=== PATIENT | female | born 1935 ===

== ENCOUNTER 2018-01-28 09:41 | Emergency (ER) | payer OTHER ==
[~2018-01-28] VITALS: Ht 165.1 cm; Wt 60.8 kg
== END 2018-01-28 12:30 | disposition home or self-care (01) ==
LOC: ER 09:41
DX: R20.0 Anesthesia of skin (principal)

== ENCOUNTER 2018-02-22 09:18 | Outpatient (CLI) | payer OTHER | END 2018-02-22 09:20 | disposition home or self-care (01) | LOC: LAB 09:18 | DX: G23.8 Other specified degenerative diseases of basal ganglia (principal); G25.0 Essential tremor; I10 Essential (primary) hypertension; G30.0 Alzheimer's disease with early onset; R19.5 Other fecal abnormalities; M81.0 Age-related osteoporosis without current pathological fracture; Z13.820 Encounter for screening for osteoporosis; M89.8X8 Other specified disorders of bone, other site ==

== ENCOUNTER → 2018-03-10 | Outpatient (CLI) | payer OTHER | END | disposition home or self-care (01) | LOC: NUCLEAR 03-04 11:30 → EDBD 11:00 → NUCLEAR 11:00 | DX: M81.0 Age-related osteoporosis without current pathological fracture (principal); G23.9 Degenerative disease of basal ganglia, unspecified; G25.0 Essential tremor; I10 Essential (primary) hypertension; M89.9 Disorder of bone, unspecified; G30.0 Alzheimer's disease with early onset; R19.5 Other fecal abnormalities; Z13.820 Encounter for screening for osteoporosis ==

== ENCOUNTER 2018-06-29 07:49 | Outpatient (CLI) | payer OTHER | END 2018-06-29 08:15 | disposition home or self-care (01) | LOC: LAB 07:49 | DX: G23.8 Other specified degenerative diseases of basal ganglia (principal); G25.0 Essential tremor; I10 Essential (primary) hypertension; M89.9 Disorder of bone, unspecified; G30.0 Alzheimer's disease with early onset; R19.5 Other fecal abnormalities; M81.0 Age-related osteoporosis without current pathological fracture; Z13.820 Encounter for screening for osteoporosis ==

== ENCOUNTER → 2018-10-17 07:31 | Outpatient (CLI) | payer OTHER | END | disposition home or self-care (01) | LOC: LAB 07:31 | DX: G23.8 Other specified degenerative diseases of basal ganglia (principal); G25.0 Essential tremor; I10 Essential (primary) hypertension; G30.0 Alzheimer's disease with early onset; R19.5 Other fecal abnormalities; M81.0 Age-related osteoporosis without current pathological fracture; Z13.820 Encounter for screening for osteoporosis; M89.8X8 Other specified disorders of bone, other site ==

== ENCOUNTER 2018-12-04 16:18 | Emergency (ER) | payer OTHER ==
[~2018-12-04] VITALS: Ht 157.5 cm; Wt 70.8 kg
== END 2018-12-04 20:18 | disposition home or self-care (01) ==
LOC: ER 16:18 → EDBD 16:55 → ER 16:55
DX: I63.89 Other cerebral infarction (principal)

== ENCOUNTER 2018-12-05 11:52 | Emergency (ER) | payer OTHER ==
[~2018-12-05] VITALS: Ht 157.5 cm; Wt 73.5 kg
== END 2018-12-05 15:44 | disposition home or self-care (01) ==
LOC: ER 11:52
DX: I63.89 Other cerebral infarction (principal); R47.81 Slurred speech; R47.1 Dysarthria and anarthria; G83.21 Monoplegia of upper limb affecting right dominant side; R40.2412 Glasgow coma scale score 13-15, at arrival to emergency department; I10 Essential (primary) hypertension

== ENCOUNTER 2018-12-15 09:42 | Outpatient (CLI) | payer OTHER | END 2018-12-15 10:37 | disposition home or self-care (01) | LOC: LAB 09:42 | DX: G30.0 Alzheimer's disease with early onset (principal); F41.8 Other specified anxiety disorders; E55.9 Vitamin D deficiency, unspecified; G23.8 Other specified degenerative diseases of basal ganglia; Z68.28 Body mass index [BMI] 28.0-28.9, adult; Z12.11 Encounter for screening for malignant neoplasm of colon; E78.89 Other lipoprotein metabolism disorders; E11.51 Type 2 diabetes mellitus with diabetic peripheral angiopathy without gangrene; E11.9 Type 2 diabetes mellitus without complications; N39.0 Urinary tract infection, site not specified; B96.29 Other Escherichia coli [E. coli] as the cause of diseases classified elsewhere ==

== ENCOUNTER 2019-03-20 08:07 | Outpatient (CLI) | payer OTHER | END 2019-03-20 08:21 | disposition home or self-care (01) | LOC: LAB 08:07 → EDBD 08:07 → LAB 08:21 | DX: G30.0 Alzheimer's disease with early onset (principal); F41.8 Other specified anxiety disorders; E55.9 Vitamin D deficiency, unspecified; G23.8 Other specified degenerative diseases of basal ganglia; I70.0 Atherosclerosis of aorta; G45.8 Other transient cerebral ischemic attacks and related syndromes; Z68.28 Body mass index [BMI] 28.0-28.9, adult ==

== ENCOUNTER 2019-03-21 07:57 | Outpatient (CLI) | payer OTHER | END 2019-03-21 15:10 | disposition home or self-care (01) | LOC: LAB 07:57 | DX: G30.0 Alzheimer's disease with early onset (principal); F41.8 Other specified anxiety disorders; E55.9 Vitamin D deficiency, unspecified; G23.8 Other specified degenerative diseases of basal ganglia; I70.0 Atherosclerosis of aorta; G45.8 Other transient cerebral ischemic attacks and related syndromes; Z68.28 Body mass index [BMI] 28.0-28.9, adult ==

== ENCOUNTER 2019-06-16 09:31 | Outpatient (CLI) | payer OTHER | END 2019-06-16 09:41 | disposition home or self-care (01) | LOC: LAB 09:31 | DX: G30.0 Alzheimer's disease with early onset (principal); F41.8 Other specified anxiety disorders; E55.9 Vitamin D deficiency, unspecified; G23.8 Other specified degenerative diseases of basal ganglia; I70.0 Atherosclerosis of aorta; G45.8 Other transient cerebral ischemic attacks and related syndromes; Z68.28 Body mass index [BMI] 28.0-28.9, adult ==